=== PATIENT | male | born 1945 | race Caucasian/White ===

== ENCOUNTER 2019-03-11 09:15 | Inpatient (IN) ==
--- NOTE | 2019-02-07 12:17 | Anesthesiology Consultation ---
Date of Service February 07, 2019 Assessment & Plan (1) Encounter for pre-operative examination: Chart Review Chart Review: Pending: Refer to Additional Notes / Consult section (pending preop testing (labs, EKG, CXR)) and Patient seen in Pre Admission Testing Teaching & Discussion Pre-Anesthesia Teaching/Discussion Notes: Instructed NPO after midnight before surgery,except medications with 15 cc of water. Medication instructions provid ed according to the PAT guidelines. History Surgery Operation Date: 03/11/19 08:55 Proposed Procedures p Left Total Knee Arthroplasty - Oliverio Mcduffie MD Height/Weight Height: 5 ft 5 in Weight: 78.9 kg Allergies Allergy/AdvReac Type Severity Reaction Status Date / Time No Known Allergies Allergy Verified 02/05/19 13:03 Medications Home Medications Medication Instructions Recorded Confirmed Last Taken meloxicam 15 mg PO DAILY 02/05/19 02/05/19 Unknown Past Medical History Medical History Fatty liver Osteoarthritis Exercise / Class Metabolic Activity III < 4 Walking/Shop/Light housework Past Family History Family History Other No significant family history Past Surgical History Surgical History H/O hand surgery LEFT THUMB RECONSTRUCTION H/O shoulder surgery RT History of appendectomy History of arthroscopy RT KNEE History of colonoscopy History of herniorrhaphy UMBILICAL AND INGUINAL History of tonsillectomy and adenoidectomy History of tooth extraction Past Anesthesia History No Family Hx of Anesthesia Complications and Other "Slow to wake" with shoulder surgery. No similar issues with other surgeries/anesthesia. History of PONV No Hx of PONV and No Hx of Motion Sickness Social History Smoking Status: Never smoker Do You Dip or Chew Tobacco: No Hx Alcohol Use: No Hx Substance Use: No substance use type: does not use Review of Systems Patient denies chest pain, shortness of breath, reflux, cough, wheezing, palpitations. Physical Exam Vital Signs VITALS BP 142/90 (Patient advised to followup with PCP regarding elevated BP) P 93 TEMP 98.4 SP02 97%Ra RESP 16 PHYSICAL Full neck and c-spine range of motion. Full TMJ range of motion. TMD 4 finger breaths Mallampati Score 3 Dentition: upper front bridge Lungs: clear throughout to auscultation Cardiac: regular rate and rhythm, no murmurs noted Spine: normal Carotid arteries: negative bruit Extremities: no edema
--- NOTE | 2019-02-07 13:00 | XRay Report ---
XR chest Pre-admission PA/Lat CLINICAL HISTORY: pat preoperative COMPARISON STUDY: No previous studies for comparison. FINDINGS: The bones soft tissues and hemidiaphragms are normal. The cardiomediastinal silhouette is n ormal. The lungs are clear. The pulmonary vasculature is normal. IMPRESSION: Negative chest. The above report was generated using voice recognition software. It may contain grammatical, syntax or spelling errors. Electronically signed by: Roberto Carlos Marinelli M.D. 02/07/2019 12:59 PM
[2019-02-07 13:01] LABS: Basophils # (auto) 0.03 K/uL (0-0.2); Basophils % (auto) 0.4 %; Eosinophils % (auto) 2.7 %; Hematocrit (blood only) 43.4 % (42-52); Hemoglobin 15.4 g/dL (14.0-18.0); Immature Granulocytes # (auto) 0.03 K/uL (0.00-0.02); Immature Granulocytes % (auto) 0.4 %; Lymphocytes # (auto) 1.41 K/uL (1.2-3.4); Lymphocytes % (auto) 18.8 %; Mean Corpuscular Hemoglobin 32.2 pg (25-34); Mean Corpuscular Hgb Conc 35.5 g/dL (32-36); Mean Corpuscular Volume 90.6 fL (80-100); Mean Platelet Volume 10.3 fL (7.4-10.4); Monocytes # (auto) 0.98 K/uL (0.11-0.59); Neutrophils # (auto) 4.87 K/uL (1.4-6.5); Neutrophils % (auto) 64.7 %; Platelet Count 212 K/uL (130-400); RDW Coefficient of Variation 12.6 % (11.5-14.5); RDW Standard Deviation 41.9 fL (36.4-46.3); Red Blood Count 4.79 M/uL (4.7-6.1); White Blood Count 7.52 K/uL (4.8-10.8)
[2019-02-07 13:15] LABS: INR 1.1 (0.9-1.1); Partial Thromboplastin Ratio 0.9; Partial Thromboplastin Time 25.1 Seconds (21.0-31.0); Prothrombin Time 10.8 Seconds (9.0-12.0)
[2019-02-07 15:05] LABS: Creatinine Clr Calc Pharmacy 55.7 ml/min; Est GFR (African American) 72.5; Est GFR (Non-African American) 62.6; Potassium 4.4 mmol/L (3.5-5.1)
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
[~2019-03-11 09:15] MED LIST: ACETAMINOPHEN 500 MG TAB PO SCH; BUPIVACAINE 0.25% 30 ML VIAL ONE; BUPIVACAINE 0.5 % 5 MG/1 ML PF 10ML VIAL ONE; BUPIVACAINE LIPOSOME/PF 266 MG, BUPIVACAINE/EPINEPHRINE 50 ML, SODIUM CHLORIDE 0.9% 30 ... INFIL SCH; CEFAZOLIN 2000MG 2,000 MG/15 ML SYR IV SCH; FAMOTIDINE 20 MG TAB PO SCH; GABAPENTIN 300 MG CAP PO SCH; LR 500ML BOLUS IV SCH; LR 60ML/HR IV SCH; METOCLOPRAMIDE HCL 10 MG TABLET PO SCH; TRANEXAMIC ACID 1,000 MG **IV Intra-op IV SCH
[2019-03-11] MEDS ORDERED: fentaNYL citrate 100 MCG/2 ML VIAL ONE (09:38)
[2019-03-11] MEDS ORDERED: MIDAZOLAM HCL 1 MG/ML 2ML VIAL ONE (09:38)
[2019-03-11] MEDS ORDERED: TRANEXAMIC ACID / 0.7% NACL 1000MG/100ML BAG IV ONE (10:14)
--- NOTE | 2019-03-11 10:37 | History & Physical Bridge Note ---
Date of Service March 11, 2019 History & Physical Bridge Note I have examined the patient, reviewed the History & Physical and in the interval since the performance of the History & Physical I have noted the following changes of clinical significance: no changes noted
[2019-03-11] MEDS ORDERED: ATROPINE SULFATE 0.1 MG/ML 10ML SYR IV PRN (12:08)
[2019-03-11] MEDS ORDERED: fentaNYL citrate 100 MCG/2 ML VIAL IV PRN (12:08)
[2019-03-11] MEDS ORDERED: ePHEDrine sulfate 50 MG/ML AMP IV PRN (12:08)
[2019-03-11] MEDS ORDERED: ONDANSETRON INJ 2 MG/ML 2 ML VIAL IV PRN ×2 (12:08→15:53)
[2019-03-11] MEDS ORDERED: BUPIVACAINE 0.25% 30 ML VIAL ONE (12:37)
[2019-03-11] MEDS ORDERED: BUPIVACAINE LIPOSOME 1.3% 266 MG/20 ML VIAL ONE (12:37)
[2019-03-11] MEDS ORDERED: SODIUM CHLORIDE 0.9% PF 50 ML VIAL ONE (12:37)
[2019-03-11] MEDS ORDERED: BACITRACIN INJ 50,000 UNIT VIAL ONE (12:37)
[2019-03-11] MEDS ORDERED: EPINEPHrine INJ 1 MG/ML AMP ONE (12:38)
[2019-03-11] MEDS ORDERED: ONDANSETRON INJ 2 MG/ML 2 ML VIAL ONE (13:04)
[2019-03-11] MEDS ORDERED: DEXAMETHASONE SOD INJ 4 MG/ML VIAL ONE (13:04)
[2019-03-11] MEDS ORDERED: PROPOFOL IV EMULSION 10 MG/ML 20 ML VIAL IV ONE ×2 (13:04→14:22)
[2019-03-11] MEDS ORDERED: VANCOMYCIN HCL 1000MG/20ML VIAL ONE (13:14)
[2019-03-11] MEDS ORDERED: ePHEDrine sulfate 50 MG/ML AMP ONE (13:21)
--- NOTE | 2019-03-11 14:53 | Post Operative Brief Note ---
PG Immediate Post Op with CF Date of Surgery March 11, 2019 Pre & Post Diagnosis Operation Date: 03/11/19 12:30 Pre-Op Diagnosis: Left Knee Advanced Degenerative Joint Disease Post-Op Diagnosis: Left Knee Advanced Degenerative Joint Disease I identified the patient and participated in the time-out.: Yes Procedure Operation Date: 03/11/19 12:30 Actual Procedures p Left Total Knee Arthroplasty(Left) - Oliverio Mcduffie MD Surgeon Oliverio Mcduffie MD Machine Design Engineer Umesh, PAC Estimated Blood Loss 50 Findings Consistent with Post-Op Diagnosis Fluids 1300 cc Specimens Specimen Description: A: Left Knee Bone and Tissue Drains Smith Catheter Anesthesia Type Spinal MAC Complications none Disposition Accompanied Patient To Recovery: Yes Disposition: Recovery Room
--- NOTE | 2019-03-11 15:19 | XRay Report ---
XR knee LT 1 or 2V routine CLINICAL HISTORY: Degenerative arthritis. Postoperative study. COMPARISON: January 2019 DISCUSSION: There are postsurgical changes of a total left knee arthroplasty and patellar resurfacing . The femoral and tibial components appear well seated. There are overlying skin julia present. The re is air present within the soft tissues consistent with recent surgery. IMPRESSION: Postsurgical changes of a total left knee arthroplasty. Electronically signed by: Puneet Blackman M.D. 03/11/2019 3:18 PM
--- NOTE | 2019-03-11 15:23 | Anesthesiology Progress Note ---
Date of Service March 11, 2019 Anesthesia Post Procedure Vital Signs Vital Signs: Temp Pulse Pulse Resp BP Pulse Ox 03/11/19 15:15 76 17 148/84 H 97 03/11/19 15:05 82 13 134/82 94 03/11/19 14:57 36.7 C 84 13 135/75 99 03/11/19 09:50 37.0 C 74 18 171/81 H 97 Pain Intensity Left Knee: Pain Intensity: 3 Transfer of Care Handoff Completed per policy Notes Mental Status: alert / awake / arousable Patient Amnestic to Procedure: Yes Nausea / Vomiting: adequately controlled Pain: adequately controlled Airway Patency, RR, SpO2: stable & adequate BP & HR: stable & adequate Hydration State: stable & adequate Neuraxial Anesthesia: was administered and sensory block is resolving Anesthetic Complications: no major complications apparent
[2019-03-11] MEDS ORDERED: METOCLOPRAMIDE HCL INJ 5 MG/ML 2 ML VIAL IV PRN (15:53)
[2019-03-11] MEDS ORDERED: bisacodyL 10 MG SUPP PR PRN (15:53)
[2019-03-11] MEDS ORDERED: MAGNESIUM HYDROXIDE SUSP 30 ML UDC PO PRN (15:53)
[2019-03-11] MEDS ORDERED: OXYCODONE HCL IR 5 MG TAB (IMMEDIATE RELEASE) PO PRN (15:53)
[2019-03-11] MEDS ORDERED: NALOXONE HCL 0.4 MG/1 ML VIAL/CARP IV PRN (15:53)
[2019-03-11] MEDS ORDERED: ALUMINUM/MAGNESIUM SUSP 30 ML UDC PO PRN (15:53)
[2019-03-11] MEDS ORDERED: HYDROmorphone INJ 0.5 MG/0.5 ML SYR IV PRN (15:53)
[2019-03-11] MEDS ORDERED: TAMSULOSIN HCL 0.4 MG CAP PO PRN (15:53)
[2019-03-11] MEDS: SODIUM CHLORIDE 0.9% 1000ML 1,000 ML IV SCH (16:25)
[2019-03-11] MEDS: KETOROLAC TROMETHAMINE 15 MG/ML VIAL IV SCH ×2 (17:05→22:28)
[2019-03-11] MEDS: ASCORBIC ACID 500 MG TAB PO SCH (17:06)
[2019-03-11] MEDS: FERROUS GLUCONATE 324 MG TAB PO SCH (17:06)
--- NOTE | 2019-03-11 19:44 | Operative Report ---
Post Operative Report Pre & Post Diagnosis Operation Date: 03/11/19 12:30 Pre-Op Diagnosis: Left Knee Advanced Degenerative Joint Disease Post-Op Diagnosis: Left Knee Advanced Degenerative Joint Disease I identified the patient and participated in the time-out.: Yes Procedure Operation Date: 03/11/19 12:30 Actual Procedures p Left Total Knee Arthroplasty(Left) - Oliverio Mcduffie MD Surgeon Oliverio Mcduffie MD Roll Over Press Operator Umesh, PAC Estimated Blood Loss 50 Findings Consistent with Post-Op Diagnosis Operative findings revealed advanced left knee DJD. Extensive grade 4 changes in the medial compartment as well as patellofemoral compartment and less severe laterally. He had a fixed varus deformity to his knee. He had chronic ACL deficiency. He had a significant osteophytes in all 3 compartments. Moderate sized joint effusion. Fluids 1300 cc Specimens Left knee sent for pathology. Drains None. Anesthesia Type Spinal MAC Complications none Disposition Accompanied Patient To Recovery: Yes Disposition: Recovery Room Description of Procedure Operative implants consisted of: 1. Biomet Vanguard size 62.5 left posterior bifemoral component. 2. Biomet size 71 tibial tray. 3. 10 mm posterior bite polyethylene insert. 4. 31 x 8 all poly-patella. Patient was taken to the operating room identified and placed on the operating table supine position with all contact areas were properly padded. IV antibiotics were provided by anesthesia team. A spinal anesthetic and abductor canal block had been provided in the holding area. Smith catheter was placed in sterile fashion to the left thigh tourniquet was then placed in the left lower extremities and prepped and draped in usual sterile fashion. Left leg was elevated and exsanguinated with use of an Esmarch interspace at 300 mmHg. An anterior posterior left knee was then performed to a longitudinal incision centered over the patella. Sharp passes cut through subcutaneous tissue down below the extensor mechanism. A medial parapatellar arthrotomy incision was made. Some subperiosteal dissection was carried out medially. The fat pad was dissected beneath patella tendon. Lateral patellofemoral ligament was released. The patella was subluxated laterally and the knee was flexed. The osteophytes were taken off the distal femur. The ACL was absent. PCL was released from the distal femur the tibia subluxated anteriorly. The external tibial alignment jig was then placed in the interface the tibia and adjusted 16 mm medially. Proximal tibial cut was made to remove about a millimeter bone from the most efficient aspect medial tibial plateau. Some osteophytes taken off medial and posterior medially. Tibia was sized to a size 71. Attention down the femur. New per the disc femur with a sharp drill bit intramedullary canal was suction. A left 6 degree valgus cutting guide was placed. Distal femoral cutting block was pinned in place. Distal femoral cut was made to take an additional 3 mm of bone off the distal femur. The femur was then sized to a size 62.5 we did down size this slightly. The AP cutting block was pinned parallel to the epicondylar axis which was 4 degrees of external rotation. Anterior cut, anterior chamfer, posterior cut, posterior chamfer cuts were made. Box cutting guide was placed and just slightly lateral and the box cut was made. The knee was flexed. The remnants of medial lateral menisci were excised. The osteophytes were taken off the posterior aspect of the femur. A trial femoral component was placed but the tibial tray was pinned in maximum external rotation drill and stem punch were used to create defect in the proximal tip for the tibial tray. The knee was then trialed the 10 mm insert fit most appropriately. Attention down the patella. The patella was cleaned of all soft tissues. Patella thickness measured 20 mm in thickness was cut down to 13. Was sized to a size 31 patella. Locals were drilled for 31 patella. Lateral osteophyte is moved. Patella button was placed. Knee was taken through range of motion patella tracked nicely with no thumbs test. Attention turned to placing the permanent components. All trial components were removed. A bone plug was placed in the disc femur limit blood loss put a double batch [place] G cement was mixed. Biomet Vanguard size 62.5 left posterior bifemoral component, size 71 tibial tray, 10 mm posterior bite polyethylene insert, and a 31 x 8 all poly-patella then cement in place. Knees brought out into full extension until cement hardened. Final cement check was then performed. Pericapsular tissues were injected with 100 cc of a combination of 20 cc of Exparel, 30 cc normal saline, 50 cc of quarter percent Marcaine with epinephrine. Patient did receive 1 g of tranexamic acid per the tourniquet was then let down for final tourniquet time 56 minutes. Hemostasis was assured with electrocautery. Wounds once again irrigated. Extensor macros then closed with combination 1 PDS suture #1 Vicryl suture in [id number] fashion. Extensor mechanism checked found to be intact with subtenons tissue then closed with 2 Dexon suture in a buried interrupted fashion skin was closed skin julia. Leg was then cleaned dried and sterile dressing was Xeroform for 4 sterile cast padding Elijah bandage were applied. Patient then transferred to the recovery room in stable condition. Patient tolerated procedure well no complications. I attest to the content of the Intraoperative Record and any orders documented therein. Any exceptions are noted below.
[2019-03-11] MEDS: DOCUSATE SODIUM 100 MG CAP PO SCH (20:47)
[2019-03-11] MEDS: TAPENTADOL HCL ER 50 MG TABCR PO SCH (20:48)
[2019-03-11] MEDS: ASPIRIN 81 MG ECTAB PO SCH (20:48)
[2019-03-11] MEDS: SENNA 8.6 MG TAB PO SCH (20:48)
[2019-03-11] MEDS: CEFAZOLIN 2000MG 2,000 MG/15 ML SYR IV SCH (20:53)
[2019-03-11] MEDS ORDERED: TRANEXAMIC ACID / 0.7% NACL 1,000 MG/100 ML BAG IV SCH (20:56)
[2019-03-11] MEDS: ACETAMINOPHEN 500 MG TAB PO SCH (22:27)
[2019-03-12] MEDS: SODIUM CHLORIDE 0.9% 1000ML 1,000 ML IV SCH (01:34)
[2019-03-12] MEDS: CEFAZOLIN 2000MG 2,000 MG/15 ML SYR IV SCH (05:13)
[2019-03-12] MEDS: ACETAMINOPHEN 500 MG TAB PO SCH ×3 (05:13→21:58)
[2019-03-12] MEDS: KETOROLAC TROMETHAMINE 15 MG/ML VIAL IV SCH ×4 (05:13→21:57)
[2019-03-12 05:54] LABS: Hematocrit (blood only) 40.9 % (42-52); Hemoglobin 14.3 g/dL (14.0-18.0); Mean Corpuscular Hemoglobin 31.6 pg (25-34); Mean Corpuscular Volume 90.5 fL (80-100); Mean Platelet Volume 10.3 fL (7.4-10.4); Platelet Count 291 K/uL (130-400); RDW Coefficient of Variation 12.9 % (11.5-14.5); RDW Standard Deviation 42.5 fL (36.4-46.3); Red Blood Count 4.52 M/uL (4.7-6.1); White Blood Count 21.55 K/uL (4.8-10.8)
[2019-03-12 06:19] LABS: BUN Creatinine Ratio 12.3 (10-20); Calcium 8.5 mg/dl (8.5-10.1); Est GFR (African American) 58.8; Est GFR (Non-African American) 50.7; Potassium 3.7 mmol/L (3.5-5.1)
[2019-03-12] MEDS: ASPIRIN 81 MG ECTAB PO SCH ×2 (08:27→21:58)
[2019-03-12] MEDS: TAPENTADOL HCL ER 50 MG TABCR PO SCH ×2 (08:27→21:59)
[2019-03-12] MEDS: MULTIVITAMIN TAB PO SCH (08:27)
[2019-03-12] MEDS: ASCORBIC ACID 500 MG TAB PO SCH ×2 (08:28→17:06)
[2019-03-12] MEDS: DOCUSATE SODIUM 100 MG CAP PO SCH ×2 (08:28→21:58)
[2019-03-12] MEDS: FERROUS GLUCONATE 324 MG TAB PO SCH ×2 (08:28→17:06)
--- NOTE | 2019-03-12 18:10 | Progress Note ---
DATE: 03/12/2019 SUBJECTIVE: A 73-year-old gentleman postop day 1 from left knee replacement. He is doing well. Pain is controlled. No chest pain or shortness of breath. Not feeling dizzy or lightheaded. He is voiding well voluntarily after the Smith was removed. OBJECTIVE: VITAL SIGNS: Temperature is 36.6. Vital signs stable. GENERAL: Shows a pleasant, middle-aged male. He is sitting up at his bedside chair, looks quite comfortable. EXTREMITIES: Examination of the left leg reveals the dressing to be reinforced at the inferior aspect. There is no visible blood. He can do a straight leg raise. He can dorsiflex and plantarflex his foot appropriately. He is neurologically intact. LABORATORY DATA: Hemoglobin is 14.3, hematocrit 40.9. Electrolytes are stable. ASSESSMENT: A 73-year-old gentleman postoperative day 1 from left knee replacement, doing well. His pain is controlled. He is neurologically intact. PLAN: 1. DVT prophylaxis including thigh-high TEDs, SCDs, and aspirin twice a day. 2. PT/OT. Weight bear as tolerated. Left total knee protocol. 3. Pain control, doing well with current pain regimen. 4. Disposition: Plan to discharge to home with some home health once medically stable and adequately recovered.
[2019-03-12] MEDS: SENNA 8.6 MG TAB PO SCH (21:58)
[2019-03-13] MEDS: ACETAMINOPHEN 500 MG TAB PO SCH (05:23)
[2019-03-13] MEDS: KETOROLAC TROMETHAMINE 15 MG/ML VIAL IV SCH ×2 (05:23→10:31)
--- NOTE | 2019-03-13 07:31 | Progress Note ---
DATE: 03/13/2019 SUBJECTIVE: A 73-year-old gentleman postop day 2 from a left knee replacement. He is doing pretty well. Pain is controlled. No chest pain or shortness of breath. Therapy went well. He is voiding well with the Smith out. OBJECTIVE: VITAL SIGNS: Temperature 36.5. Vital signs stable. GENERAL: Shows a pleasant, middle-aged male. He is sitting up in his bedside chair, looks comfortable. EXTREMITIES: Examination of the left leg reveals the leg to be well aligned. Dressing is clean, dry, and intact. He can dorsiflex and plantarflex his foot appropriately. He can do a straight leg raise. ASSESSMENT: A 73-year-old gentleman postop day 2 from a left knee replacement, doing pretty well. Pain is controlled. He is neurologically intact. PLAN: 1. DVT prophylaxis including thigh-high TEDs, SCDs, and aspirin twice a day. 2. PT/OT. Weight bear as tolerated. Left total knee protocol. 3. Pain control, doing well with current pain regimen. 4. Disposition: Plan to discharge to home with some home health later today.
[2019-03-13 08:10] VITALS: TEMP 98.6; O2SAT 96
[2019-03-13] MEDS: TAPENTADOL HCL ER 50 MG TABCR PO SCH (08:44)
[2019-03-13] MEDS: DOCUSATE SODIUM 100 MG CAP PO SCH (08:44)
[2019-03-13] MEDS: ASCORBIC ACID 500 MG TAB PO SCH (08:44)
[2019-03-13] MEDS: FERROUS GLUCONATE 324 MG TAB PO SCH (08:44)
[2019-03-13] MEDS: MULTIVITAMIN TAB PO SCH (08:44)
[2019-03-13] MEDS: ASPIRIN 81 MG ECTAB PO SCH (08:45)
[2019-03-13 09:52] VITALS: BP 129/88; PULSE 68
--- NOTE | 2019-03-17 22:38 | Discharge Summary ---
ADMITTING PHYSICIAN AND SURGEON: Dr. Oliverio Mcduffie. ADMITTING DIAGNOSIS: Left knee degenerative joint disease. SURGERY PERFORMED: Left total knee arthroplasty. SECONDARY DIAGNOSIS: Arthritis. CONSULTS: None obtained. HISTORY AND PHYSICAL EXAMINATION: Well documented in the patient's chart. HOSPITAL COURSE: The patient was admitted on 03/11/2019, underwent total knee arthroplasty, tolerated the procedure well. There were no complications. He was transferred to the PACU postoperatively and later to the orthopedic floor for further care. He was given Ancef for antibiotic prophylaxis, BARBARA stockings, SCDs and aspirin for DVT prophylaxis. Hemoglobin, hematocrit and vital signs were monitored during his hospital stay and remained stable, did not require any blood transfusions. There were no complications. By postoperative day 2, he was tolerating a regular diet, pain was controlled with oral pain medicine and he was participating in physical therapy. On postop day 2, he was discharged home, set up with home health services. He was given printed discharge instructions as well as new prescriptions for extra strength Tylenol, aspirin, and oxycodone. Continue his home medications with the exception of tramadol. Continue physical therapy, weightbearing as tolerated, BARBARA stockings. Follow up approximately 2 weeks postop or sooner if there are any problems or concerns.
== END 2019-03-13 13:13 | disposition home health service (06) | DRG 470 ==
LOC: ASU 09:15 → 3E 14:57
DX: M25.462 Effusion, left knee; M23.8X2 Other internal derangements of left knee; M17.5 Other unilateral secondary osteoarthritis of knee; Z79.1 Long term (current) use of non-steroidal anti-inflammatories (NSAID); M21.162 Varus deformity, not elsewhere classified, left knee